=== PATIENT | male | born 1960 | race African-American/Black ===

== ENCOUNTER 2020-10-02 14:49 | Outpatient (CLI) | payer OTHER ==
--- NOTE | 2020-10-02 15:58 | MRI ---
Exam: MRI cervical spine without contrast HISTORY: Radiculopathy, cervical region. Severe neck pain that radiates into shoulder for couple year s.. COMPARISON: None FINDINGS: Appropriate T1 marrow signal intensity of the cervical vertebra. Vertebral body heights are maintain ed. There is no fracture. No significant STIR hyperintensity to suggest ligamentous injury or vertebral body edema. There are type I Modic changes at C4-C5 and C5-C6. Type II Modic changes at T1- T2. Visualized brain parenchyma, cervicomedullary junction, cervical cord and the upper thoracic cord hav e a normal signal intensity and size C2-C3: No significant central canal stenosis. Moderate right neural foraminal narrowing. Patent left neural foramen. C3-C4: Disc desiccation with moderate loss of disc space height. Broad-based disc bulge effaces the s ubarachnoid space. Mild central canal stenosis. Severe right and mild left neural foraminal narrowing due to uncovertebral hypertrophy. C4-C5: Disc desiccation with moderate loss of disc space height. Broad-based disc bulge abuts the the enio sac. Subarachnoid space is effaced. Deformity of the cervical cord. Moderate central canal stenosis. Mild bilateral foraminal narrowing due to uncovertebral hypertrophy. C5-C6: Disc desiccation with severe loss of disc space height. Broad-based disc osteophyte complex wi th severe central canal stenosis. No cord signal abnormality. Moderate bilateral neural foraminal narrowing. C6-C7: No significant central canal stenosis. Patent bilateral neural foramina. C7-T1: No significant central canal stenosis. Patent bilateral neural foramina. IMPRESSION: Multilevel degenerative changes of the cervical spine as detailed above. Transcribed Date/Time: 10/02/2020 4:08 PM
== END 2020-10-02 14:50 | disposition home or self-care (01) ==
LOC: BICMRI 14:49
PROVIDERS: ATTEND Nurse Practitioner Family
DX: M47.22 Other spondylosis with radiculopathy, cervical region (principal)
CPT/HCPCS: 72141

== ENCOUNTER 2020-11-17 12:47 | Outpatient (CLI) | payer OTHER ==
--- NOTE | 2020-11-17 14:57 | MRI ---
MRI Lumbar Spine Noncontrast: HISTORY: Lumbar foraminal stenosis. Patient states chronic back pain for many years with numbness and tingling in bilateral lower extremities. COMPARISON: None FINDINGS: A 3.1 cm round circumscribed T2 hyperintense and corresponding T1 hypointense cystic lesion is seen i n the superior pole right kidney likely attributable to a renal cyst. There are T2 hyperintense lesions seen scattered within the left kidney likely related to left renal cysts some which represent parapelvic renal cysts. Remainder of the visualized retroperitoneal structures demonstrate a grossly normal nonenhanced MRI appearance. Conus medullaris is normal in morphology and terminates at the L1 level. Paravertebral soft tissues have a normal appearance. T11-12 and T12-L1: There are mild disc osteophyte complexes which result in slight effacement of the ventral subarachnoid space. Neural foramina appear patent at these levels. L1-2: Loss of intervertebral disc height. Broad-based disc osteophyte complex and mild facet hypertro phic changes and ligamentous thickening are present. Minimal bilateral neural foraminal narrowing is present. There is no significant central canal narrowing. L2-3: Minimal disc osteophyte complex with facet hypertrophic changes and ligamentous thickening. Mil d generalized narrowing of the central spinal canal is present. Neural foramina are patent. L3-4: Mild loss of intervertebral disc height. Broad-based disc osteophyte complex is present. Facet hypertrophic changes and ligamentous thickening are noted. There is prominence of the epidural fat posteriorly. Findings result in mild generalized narrowing of the central spinal canal. Mild bilatera l neural foraminal narrowing is present L4-5: Loss of intervertebral disc height. There is grade 1 anterolisthesis of L4 on L5 measuring appr oximately 6 mm. Severe facet hypertrophic changes and ligamentous thickening are present at this level. Findings result in severe central canal narrowing with moderate left and severe right-sided ne ural foraminal narrowing. There is narrowing of the lateral recesses at this level as well. L5-S1: Loss of intervertebral disc height with mild endplate degenerative changes. There is a disc os teophyte complex present with small right paracentral disc extrusion. Facet degenerative changes are present at this level. The disc osteophytes complex does appear to contact the bilateral traversi ng S1 nerve roots. Moderate to severe right and severe left-sided neural foraminal narrowing are present. IMPRESSION: 1. Multilevel degenerative changes in the lumbar spine greatest involving the lumbar spine at the L4- 5 and L5-S1 levels. Grade 1 anterolisthesis is present at L4-5 level which in combination with the degenerative changes at this level results in severe central canal narrowing and severe right and mod erate left-sided neural foraminal narrowing. There is severe right-sided neural foraminal narrowing at the L5-S1 level, and the disc osteophyte complex also appears to contact the traversing bilateral S1 nerve roots. 2. Bilateral renal cysts.
== END 2020-11-17 12:48 | disposition home or self-care (01) ==
LOC: BICMRI 12:47
PROVIDERS: ATTEND Specialist
DX: M48.061 Spinal stenosis, lumbar region without neurogenic claudication (principal); M51.16 Intervertebral disc disorders with radiculopathy, lumbar region; M47.26 Other spondylosis with radiculopathy, lumbar region; M47.27 Other spondylosis with radiculopathy, lumbosacral region; M43.16 Spondylolisthesis, lumbar region; M48.07 Spinal stenosis, lumbosacral region; N28.1 Cyst of kidney, acquired
CPT/HCPCS: 72148

== ENCOUNTER 2024-10-19 09:11 | Outpatient (CLI) | payer OTHER | END 2024-10-19 09:12 | disposition home or self-care (01) | LOC: MRI 09:11 | DX: M54.50 Low back pain, unspecified (principal); M47.816 Spondylosis without myelopathy or radiculopathy, lumbar region; Z98.890 Other specified postprocedural states | CPT/HCPCS: 72148 ==